=== PATIENT | female | born 2000 | race Caucasian/White ===

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

== ENCOUNTER 2018-04-28 20:24 | Emergency (ER) | payer MEDICAID ==
--- NOTE | 2018-04-28 21:28 | ER Document Report ---
ED Medical Screen (RME) - General Chief Complaint: Abdominal Pain Stated Complaint: RIGHT SIDE PAIN Time Seen by Provider: 04/28/18 21:24 Mode of Arrival: Ambulatory Information source: Patient Notes: Otherwise healthy female patient presents with chief complaint of right lower quadrant pain that started this morning upon awakening. Patient denies any nausea, vomiting, diarrhea, fever or urinary symptoms. Patient denies any blood in her urine, vaginal bleeding or abnormal vaginal discharge. Patient reports she is 18 weeks and is a . Patient reports that the pain is sharp and intermittent located in the right lower quadrant, the pain is worse with movement and holding still alleviates the pain. Patient denies any constipation. Exam: Gravid abdomen, no tenderness to palpation to right lower quadrant. I have greeted and performed a rapid initial assessment of this patient. A comprehensive ED assessment and evaluation of the patient, analysis of test results and completion of the medical decision making process will be conducted by additional ED providers. Dictation of this chart was performed using voice recognition software; therefore, there may be some unintended grammatical errors. TRAVEL OUTSIDE OF THE [place] IN LAST 30 DAYS: No - Related Data Allergies/Adverse Reactions: No Known Allergies Allergy (Verified 12/31/17 22:03) Past Medical History - Social History Chew tobacco use (# tins/day): No Frequency of alcohol use: None Drug Abuse: None Renal/ Medical History: Denies: Hx Peritoneal Dialysis Past Surgical History: Reports: Hx Oral Surgery - 6-25-15 - Immunizations Immunizations up to date: Yes Physical Exam - Vital signs Vitals: Temp Pulse Resp BP Pulse Ox 98.3 F 71 12 132/75 H 99 04/28/18 20:30 04/28/18 20:30 04/28/18 20:30 04/28/18 20:30 04/28/18 20:30 Course - Vital Signs Vital signs: Temp Pulse Resp BP Pulse Ox 98.3 F 71 12 132/75 H 99 04/28/18 20:30 04/28/18 20:30 04/28/18 20:30 04/28/18 20:30 04/28/18 20:30
[2018-04-28 21:45] LABS: ABSOLUTE EOSINOPHILS # (AUTO) 0.1 10^3/uL (0.0-0.6); ABSOLUTE LYMPHOCYTES (AUTO) 2.9 10^3/uL (0.5-4.7); ABSOLUTE MONOCYTES (AUTO) 0.7 10^3/uL (0.1-1.4); ABSOLUTE NEUT (AUTO) 7.2 10^3/uL (1.7-8.2); BASOPHILS % (AUTO) 0.3 % (0-2); EOSINOPHILS % (AUTO) 0.9 % (0-6); HEMATOCRIT 41.1 % (36.0-47.0); HEMOGLOBIN 14.2 g/dL (12.0-15.5); LYMPHOCYTES % (AUTO) 26.5 % (13-45); MEAN CORPUSCULAR HEMOGLOBIN 30.3 pg (27.0-33.4); MEAN CORPUSCULAR HGB CONC 34.5 g/dL (32.0-36.0); MEAN CORPUSCULAR VOLUME 88 fl (80-97); MONOCYTES % (AUTO) 6.2 % (3-13); PLATELET COUNT 216 10^3/uL (150-450); RED BLOOD COUNT 4.68 10^6/uL (3.72-5.28); RED CELL DISTRIBUTION WIDTH 14.4 % (11.5-14.0); SEGMENTED NEUTROPHILS % (AUTO) 66.1 % (42-78); TOTAL CELLS COUNTED % (AUTO) 100 %; WHITE BLOOD COUNT 10.8 10^3/uL (4.0-10.5)
[2018-04-28 21:47] LABS: AMORPHOUS SEDIMENT,URINE TRACE /HPF; APPEARANCE,URINE CLOUDY; BILIRUBIN,URINE NEGATIVE (NEGATIVE); COLOR,URINE YELLOW; GLUCOSE, URINE NEGATIVE (NEGATIVE); KETONES,URINE NEGATIVE (NEGATIVE); LEUKOCYTE ESTERASE,URINE NEGATIVE (NEGATIVE); NITRITE,URINE NEGATIVE (NEGATIVE); PROTEIN,URINE NEGATIVE (NEGATIVE); URINE SPECIFIC GRAVITY 1.012
[2018-04-28 22:09] LABS: ALANINE AMINOTRANSFERASE 20 U/L (5-35); ALBUMIN 4.3 g/dL (3.7-5.6); ALKALINE PHOSPHATASE 53 U/L (50-135); ANION GAP 13 (5-19); ASPARTATE AMINO TRANSFERASE 19 U/L (5-30); BILIRUBIN,DIRECT 0.3 mg/dL (0.0-0.4); BILIRUBIN,TOTAL 0.3 mg/dL (0.2-1.3); BLOOD UREA NITROGEN 6 mg/dL (7-20); CALCIUM 9.5 mg/dL (8.4-10.2); CARBON DIOXIDE 23 mmol/L (22-30); CHLORIDE 105 mmol/L (98-107); GLUCOSE 76 mg/dL (75-110); LIPASE 89.7 U/L (23-300); POTASSIUM 4.4 mmol/L (3.6-5.0); SODIUM 141.1 mmol/L (137-145); TOTAL PROTEIN 7.7 g/dL (6.3-8.2)
--- NOTE | 2018-04-29 00:38 | ER Document Report ---
ED General - General Mode of Arrival: Ambulatory Information source: Patient TRAVEL OUTSIDE OF THE [place] IN LAST 30 DAYS: No <LISETH IRAHETA - Last Filed: 04/29/18 01:45> <JIM AG - Last Filed: 04/29/18 03:37> - General Chief Complaint: Abdominal Pain Stated Complaint: RIGHT SIDE PAIN Time Seen by Provider: 04/28/18 21:24 Notes: 17 y.o female presents to the ED with RT sided abd pain of onset 7:45 tonight. She describes her pain as a sharp pain, prominently to her RLQ. She reports that her pain is intermittent with movement, not worsening in intensity. She denies any fever, vaginal discharge or bleeding, nausea or vomiting. Pt reports her last menstrual period was 12/20/17, she is 18 weeks , A0. She reports an ultrasound on 04/06/18 at [facility]. Pt denies any other medical issues or any at home medications other than taking vitamins. (LISETH IRAHETA) - Related Data Allergies/Adverse Reactions: No Known Allergies Allergy (Verified 12/31/17 22:03) Past Medical History - General Information source: Patient - Social History Smoking Status: Never Smoker Chew tobacco use (# tins/day): No Frequency of alcohol use: None Drug Abuse: None Family History: Reviewed & Not Pertinent Patient has suicidal ideation: No Patient has homicidal ideation: No Renal/ Medical History: Denies: Hx Peritoneal Dialysis Past Surgical History: Reports: Hx Oral Surgery - [place] teeth removal: 03-30-15 - Immunizations Immunizations up to date: Yes <LISETH IRAHETA - Last Filed: 04/29/18 01:45> Review of Systems - Review of Systems Constitutional: denies: Fever EENT: No symptoms reported Cardiovascular: No symptoms reported Respiratory: No symptoms reported Gastrointestinal: See HPI, Abdominal pain - RLQ. denies: Nausea, Vomiting Genitourinary: No symptoms reported Female Genitourinary: See HPI, Last menstrual period - 12/20/17, - 18 weeks. denies: Vaginal discharge, Vaginal bleeding Musculoskeletal: No symptoms reported Skin: No symptoms reported Hematologic/Lymphatic: No symptoms reported Neurological/Psychological: No symptoms reported -: Yes All other systems reviewed and negative <LISETH IRAHETA - Last Filed: 04/29/18 01:45> Physical Exam <LISETH IRAHETA - Last Filed: 04/29/18 01:45> <JIM AG - Last Filed: 04/29/18 03:37> - Vital signs Vitals: Temp Pulse Resp BP Pulse Ox 98.3 F 71 12 132/75 H 99 04/28/18 20:30 04/28/18 20:30 04/28/18 20:30 04/28/18 20:30 04/28/18 20:30 - Notes Notes: Physical Exam: General: Alert, appears well. HEENT: Normocephalic. Atraumatic. PERRL. Extraocular movements intact. Oropharynx clear. Neck: Supple. Non-tender. Respiratory: No respiratory distress. Clear and equal breath sounds bilaterally. Cardiovascular: Regular rate and rhythm. Abdominal: Tenderness to palpation to the RLQ. Bowel sounds decreased. No guarding or rebound. Back: Non-tender. No deformity or step off. Extremities: Moves all four extremities. Upper extremities: Normal inspection. Normal ROM. Lower extremities: Normal inspection. No edema. Normal ROM. Neurological: Normal cognition. AAOx3. Normal speech. Psychological: Normal affect. Normal Mood. Skin: Warm. Dry. Normal color. (BRAULIO IRAHETAIA) Course - Laboratory Result Diagrams: 04/28/18 21:15 04/28/18 21:15 <BRAULIO IRAHETAIA - Last Filed: 04/29/18 01:45> - Laboratory Result Diagrams: 04/28/18 21:15 04/28/18 21:15 - Diagnostic Test Radiology reviewed: Reports reviewed - 18 week normal IUP heart rate 168 normal right ovary with dominant right ovarian follicle. Left ovary not seen. Appendix not seen. <JIM AG - Last Filed: 04/29/18 03:37> - Re-evaluation Re-evalutation: 04/29/18 03:34 Patient reports that her pain is actually better now than it was earlier. Abdomen remains soft, bowel sounds are more active now than they were on initial exam. She does remain tender in the right lower quadrant area, but states that it is better than it was earlier. She does not have elevated white blood cell count. The pain is been going on now for over 20 hours and it is actually improving. She continues to have normal active bowel sounds. The ultrasound does show a normal right ovary with dominant follicle, but no other abnormality. The appendix could not be visualized. She will be discharged with appendicitis observation instructions. (JIM AG) - Vital Signs Vital signs: Temp Pulse Resp BP Pulse Ox 98.3 F 71 12 132/75 H 99 04/28/18 20:30 04/28/18 20:30 04/28/18 20:30 04/28/18 20:30 04/28/18 20:30 - Laboratory Laboratory results interpreted by me: 04/28/18 04/28/18 04/28/18 21:15 21:15 21:15 WBC 10.8 H RDW 14.4 H BUN 6 L Creatinine 0.45 L Beta HCG, Quant 47367.00 H Urine Urobilinogen 2.0 H Discharge <LISETH IRAHETA - Last Filed: 04/29/18 01:45> <JIM AG - Last Filed: 04/29/18 03:37> - Discharge Clinical Impression: with 18 completed weeks gestation, Right lower quadrant abdominal pain Condition: Stable Disposition: HOME, SELF-CARE Additional Instructions: Observation for Appendicitis At this time, the abdominal pain does not seem to be appendicitis. Our next "test" will be passage of time. If you have early appendicitis, signs will appear to help us make the diagnosis. Most of the time, the pain goes away. In these cases, the pain is usually due to a virus in the lymph glands near the appendix, or due to an ovarian cyst or ovulation. Unless the pain is gone, you should come back for a recheck. This is usually done in 8 to 12 hours. Be sure you understand your follow-up instructions. Come back immediately if: (1) the pain becomes much more severe and sharply increases with movement or coughing, (2) vomiting becomes frequent, (3) there is blood in the vomit, urine, or bowel movements, (4) there are shaking chills or fever, or (5) the abdomen becomes more distended or swollen. Follow-up with your [facility] doctor today for recheck, unless the pain goes away completely. RETURN TO THE EMERGENCY ROOM IF ANY NEW OR WORSENING SYMPTOMS. Jordyibjolie Attestation: 04/29/18 01:30 I personally performed the services described in the documentation, reviewed and edited the documentation which was dictated to the scribe in my presence, and it accurately records my words and actions. (JIM AG) Jordyibe Documentation - Scribe Written by Radha:: Radha Shelton 04/29/18 0040 acting as scribe for :: Gila <LISETH IRAHETA - Last Filed: 04/29/18 01:45>
--- NOTE | 2018-04-29 03:04 | RADIOLOGY REPORT (SQ) ---
EXAM DESCRIPTION: Limited obstetric ultrasound April 29, 2018 CLINICAL HISTORY: 17 years, Female, 18wks, RLQ-pelvic pain COMPARISON: None Available.] TECHNIQUE: Utilizing a curved array transducer, real-time ultrasound evaluation of the gravid uterus was performed. Color Doppler imaging was used to assess vascular flow. FINDINGS: There is a single intrauterine . The placenta is anterior positioned. The fetus is in variable position. The cervical length is 3 cm There is a trace amount of fluid within the cervical canal. The heart rate is 168 bpm. The amniotic fluid volume is qualitatively normal. LMP: December 20, 2017 Gestational Age by LMP: 18 weeks 4 days Due Date by LMP: September 26, 2018 The maternal right ovary measures 2.9 x 3.2 x 1.9 cm. There is a dominant right ovarian follicle measuring 1.9 x 1.3 x 2.2 cm. There is intact vascular flow to the maternal right ovary. There are no adnexal masses. The maternal left ovary is not well-visualized. The maternal appendix is not visualized. IMPRESSION: 1. Single intrauterine . 2. Cephalic presentation with anterior placenta. 3. Normal amniotic fluid volume with closed cervix. 4. Normal maternal right ovary with nonvisualization of the appendix.
[2018-04-29 03:45] VITALS: BP 125/70
== END 2018-04-29 03:42 | disposition home or self-care (01) ==
LOC: ER 20:24
DX: O26.92 Pregnancy related conditions, unspecified, second trimester (principal); R10.31 Right lower quadrant pain; Z3A.18 18 weeks gestation of pregnancy
CPT/HCPCS: 36415; 76815; 80053; 81001; 83690; 84702; 85025; 99284

== ENCOUNTER 2018-09-25 18:29 | Inpatient (IN) | payer MEDICAID ==
[2018-09-25 18:59] LABS: APPEARANCE,URINE CLOUDY; BILIRUBIN,URINE NEGATIVE (NEGATIVE); COLOR,URINE YELLOW; GLUCOSE, URINE NEGATIVE (NEGATIVE); KETONES,URINE NEGATIVE (NEGATIVE); LEUKOCYTE ESTERASE,URINE NEGATIVE (NEGATIVE); NITRITE,URINE NEGATIVE (NEGATIVE); PROTEIN,URINE NEGATIVE (NEGATIVE); URINE SPECIFIC GRAVITY 1.012; UROBILINOGEN,URINE NEGATIVE mg/dL (<2.0)
[2018-09-25 19:16] LABS: ABSOLUTE EOSINOPHILS # (AUTO) 0.1 10^3/uL (0.0-0.6); ABSOLUTE LYMPHOCYTES (AUTO) 2.6 10^3/uL (0.5-4.7); ABSOLUTE MONOCYTES (AUTO) 0.9 10^3/uL (0.1-1.4); ABSOLUTE NEUT (AUTO) 9.4 10^3/uL (1.7-8.2); BASOPHILS % (AUTO) 0.1 % (0-2); EOSINOPHILS % (AUTO) 0.4 % (0-6); HEMATOCRIT 33.4 % (36.0-47.0); LYMPHOCYTES % (AUTO) 20.1 % (13-45); MEAN CORPUSCULAR HGB CONC 32.9 g/dL (32.0-36.0); MEAN CORPUSCULAR VOLUME 82 fl (80-97); MONOCYTES % (AUTO) 7.2 % (3-13); PLATELET COUNT 229 10^3/uL (150-450); RED BLOOD COUNT 4.07 10^6/uL (3.72-5.28); RED CELL DISTRIBUTION WIDTH 14.5 % (11.5-14.0); SEGMENTED NEUTROPHILS % (AUTO) 72.2 % (42-78); TOTAL CELLS COUNTED % (AUTO) 100 %
[2018-09-25 19:22] LABS: URINE AMPHETAMINES SCREEN NEGATIVE; URINE BARBITURATES SCREEN NEGATIVE; URINE BENZODIAZEPINES SCREEN NEGATIVE; URINE COCAINE SCREEN NEGATIVE; URINE MARIJUANA (THC) SCREEN NEGATIVE; URINE METHADONE SCREEN NEGATIVE; URINE PHENCYCLIDINE SCREEN NEGATIVE
[2018-09-25] MEDS ORDERED: LIDOCAINE 1% INJ-PF (10 MG/ML) 30 ML SDV ONE (19:26)
[2018-09-25] MEDS ORDERED: OXYTOCIN 10 UNIT/ML VIAL ONE (19:26)
[2018-09-25] MEDS ORDERED: OXYTOCIN/NORMAL SALINE 20 UNIT/1,000 ML RTUINJ ONE (19:26)
[2018-09-25] MEDS ORDERED: MISOPROSTOL 0.2 MG TABLET ONE (19:26)
[2018-09-25] MEDS ORDERED: EPHEDRINE SULFATE INJ 50 MG/1 ML AMPULE ONE (19:29)
[2018-09-25] MEDS ORDERED: BUPIVACAINE HCL 0.25 % INJ/PF (2.5 MG/1 ML) 30 ML VIAL ONE (19:29)
[2018-09-25] MEDS ORDERED: PHENYLEPHRINE HCL INJ/PF 10 MG/1 ML SDV ONE (19:29)
[2018-09-25] MEDS ORDERED: FENTANYL CITRATE INJ/PF 100 MCG/2 ML AMPUL ONE (19:29)
[2018-09-25] MEDS ORDERED: FENTANYL/BUPIVACAINE/NS/PF 300 MCG/150 ML RTUINJ EPI ONE (19:31)
[2018-09-25] MEDS ORDERED: LIDOCAINE 1.5%/EPINEPHRINE INJ-PF 30 ML SDV ONE (20:00)
--- NOTE | 2018-09-25 21:03 | Admission Physical ---
Datetime Report Generated by CPN: 09/25/2018 21:02 CURRENT ADMISSION Chief Complaint: Uterine Contractions Indication for Induction: Not Applicable Admit Impression : Term, Intrauterine Admit Plan: Initiate Labor Protocol ALLERGIES Medication Allergies: No Medication Allergies: No Known Allergies (09/25/2018) Latex: No Latex Allergies OBSTETRICAL HISTORY EDC: 09/26/2018 00:00 : 1 Para: 0 Term: 0 : 0 SAB: 0 IAB: 0 Ectopic: 0 Livin Cesareans: 0 VBACs: 0 Multiple Births: 0 Gestational Diabetes: No Rh Sensitization: No Incompetent Cervix: No HARMAN: No Infertility: No ART Treatment: No Uterine Anomaly: No IUGR: No Hx Previous C/S: No Macrosomia: No Hx Loss/Stillborn: No PIH: No Hx : No Placenta Previa/Abruption: No Depression/PP Depression: No PTL/PROM: No Post Hemorrhage: No Current Procedures: Ultrasound Obstetrical History Comments: G-1 current SEE RECORDS Alcohol: No Marijuana : No Cocaine: No Other Illicit Drugs: No Cigarettes: Never Smoker. 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
[2018-09-26] MEDS ORDERED: PSEUDOEPHEDRINE HCL 30 MG TABLET PO PRN (00:08)
[2018-09-26] MEDS ORDERED: PROMETHAZINE HCL INJ 25 MG/1 ML VIAL IV PRN (00:08)
[2018-09-26] MEDS ORDERED: DIPH/PERTUSS(ACELL)/TETANUS VAC/PF 0.5 ML SYR (>=10YO) IM PRN (00:08)
[2018-09-26] MEDS ORDERED: GLYCERIN/WITCH HAZEL LEAF 1 EACH MED..PAD TP PRN (00:08)
[2018-09-26] MEDS ORDERED: PROMETHAZINE HCL 25 MG TABLET PO PRN (00:08)
[2018-09-26] MEDS ORDERED: PROMETHAZINE HCL 25 MG SUPP.RECT PR PRN (00:08)
[2018-09-26] MEDS ORDERED: BENZOCAINE/MENTHOL AEROSOL SPRAY 56 ML TOP PRN (00:08)
[2018-09-26] MEDS ORDERED: DIPHENHYDRAMINE HCL 25 MG CAPSULE PO PRN (00:08)
[2018-09-26] MEDS ORDERED: ACETAMINOPHEN WITH CODEINE #3 TABLET PO PRN (00:08)
[2018-09-26] MEDS ORDERED: MEASLES,MUMPS&RUBELLA VACC/PF 0.5 ML VIAL SUBCUT PRN (00:08)
[2018-09-26] MEDS ORDERED: NA PHOS,M-B/NA PHOS,DI-BA (ADULT) 133 ML ENEMA PR PRN (00:08)
[2018-09-26] MEDS ORDERED: ZOLPIDEM TARTRATE 5 MG TABLET PO PRN (00:08)
[2018-09-26] MEDS ORDERED: OXYTOCIN/NORMAL SALINE 20 UNIT/1,000 ML RTUINJ IV PRN (00:08)
[2018-09-26] MEDS ORDERED: DIBUCAINE 1% OINTMENT 28 GM TP PRN (00:08)
[2018-09-26] MEDS ORDERED: MAGNESIUM HYDROXIDE SUSP 30 ML UDCUP PO PRN (00:08)
[2018-09-26] MEDS ORDERED: ACETAMINOPHEN 650 MG SUPP.RECT PR PRN (00:08)
--- NOTE | 2018-09-26 00:11 | PDOC DELIVERY SUMMARY ---
Delivery Summary - Maternal Ruptured Membranes: AROM Fluids: Clear - Delivery Labor: Not In Labor Presentation: Vertex Heart Rate Monitoring: Externally Uterine Contraction Monitoring: External Placenta: Within Normal Limits Nuchal Cord: No - Medications Type of Anesthesia:: Epidural
[2018-09-26] MEDS ORDERED: IBUPROFEN 800 MG TABLET ONE (01:09)
[2018-09-26] MEDS ORDERED: BENZOCAINE/MENTHOL AEROSOL SPRAY 56 ML ONE (02:21)
--- NOTE | 2018-09-26 02:39 | Delivery Summary ---
Del Sum A-C Datetime Report Generated by CPN: 09/26/2018 02:39 DELIVERY PERSONNEL DELIVERY PERSONNEL: [id number] Delivery Doctor:: Erick Valle, Labor and Delivery Nurse:: Jane Mcduffie, returned materials inspector Nurse:: Licha Villegas, RN Freezer Tunnel Operator/GENERAL UTILITY MAINTENANCE REPAIRER: Bora Ertel, GENERAL UTILITY MAINTENANCE REPAIRER MATERNAL INFORMATION Delivery Anesthesia: Epidural Medications After Delivery: Pitocin Drip 20 Units/1000ml NSS Maternal Complications: None LABOR SUMMARY EDC: 09/26/2018 00:00 No. Babies in Womb: 1 Attempted: No Labor Anesthesia: Epidural LABOR INFORMATION Reason for Induction: Not Applicable Onset of Labor: 09/25/2018 15:00 Complete Dilatation: 09/25/2018 21:43 Oxytocin: N/A Group B Beta Strep: negative Antibiotics # of Doses: 0 Steroids Given: None Reason Steroids Not Administered: Not Applicable MEMBRANES Membranes Rupture Method: Artificial Rupture of Membranes: 09/25/2018 21:33 Length of Rupture (hr): 2.30 Amniotic Fluid Color: Clear Amniotic Fluid Amount: Scant Amniotic Fluid Odor: Normal STAGES OF LABOR Stage 1 hr: 6 Stage 1 min: 43 Stage 2 hr: 2 Stage 2 min: 8 Stage 3 hr: 0 Stage 3 min: 4 Total Time in Labor hr: 8 Total Time in Labor min: 55 VAGINAL DELIVERY Episiotomy: None Laceration #1: Perineal; Vaginal Laceration Extension #1: Second Degree Laceration Repair: Yes Sponge Count Correct: N/A Sharps Count Correct: Yes CSECTION DELIVERY Primary Indication: N/A Secondary Indication: N/A CSection Incidence: N/A Labor: N/A Elective: N/A CSection Incision: N/A BABY A INFORMATION Delivery Date/Time: 09/25/2018 23:51 Method of Delivery: Vaginal Born in Route : No : N/A Forceps: N/A Vacuum Extraction: Successful Shoulder Dystocia : No ASSISTED DELIVERY BABY A Vacuum Internal Controls Specialist: KIWI PRESENTATION/POSITION BABY A Presentation: Cephalic Cephalic Presentation: Vertex Vertex Position: Left Occipital Anterior Breech Presentation: N/A PLACENTA INFORMATION BABY A Placenta Delivery Time : 09/25/2018 23:55 Placenta Method of Delivery: Spontaneous Placenta Status: Delivered SCORES BABY A Heart Rate 1 min: >100 bpm Resp Effort 1 min: Good Cry Reflex Irritability 1 min: Cough or Sneeze or Pulls Away Muscle Tone 1 min: Active Motion Color 1 min: Blue/Pale Resuscitation Effort 1 min: Tactile Stimulation SCORE 1 MIN: 8 Heart Rate 5 min: >100 bpm Resp Effort 5 min: Good Cry Reflex Irritability 5 min: Cough or Sneeze or Pulls Away Muscle Tone 5 min: Active Motion Color 5 min: Body Clarks, Extremities Blue Resuscitation Effort 5 min: Tactile Stimulation SCORE 5 MIN: 9 INFORMATION BABY A Gestational Age at Delivery: 39.6 Gestational Status: Full Term- 39- 40.6 Weeks Infant Outcome : Liveborn Condition : Stable Infant Sex: Male IDENTIFICATION BABY A ID Band Number: [id number] Mother's Name Verified: Yes Infant RN Verifying Infant: T. GentilinRN/ A.Killinger RN WEIGHT/LENGTH BABY A Infant Birthweight (gm): 3125 Infant Weight (lb): 6 Infant Weight (oz): 14 Length (in): 20.00 Length (cm): 50.80 CORD INFORMATION BABY A No. Cord Vessels: 3 Nuchal Cord : N/A Cord Blood Taken: Yes-For Eval (Mom's Blood Type - or O+) Infant Suction: Mouth ASSESSMENT BABY A Complications: None Physical Findings at Delivery: Within Normal Limits Skin to Skin: Yes Transferred To: Nursery BABY B INFORMATION : N/A SIGNATURES Signature: with User ID: [email or web address]
[2018-09-26] MEDS: FERROUS SULFATE 325 MG TABLET PO SCH ×2 (09:33→17:51)
[2018-09-26] MEDS: IBUPROFEN 800 MG TABLET PO SCH ×3 (09:33→22:11)
[2018-09-26] MEDS: SENNOSIDES/DOCUSATE 8.6-50 MG 1 EACH TABLET PO SCH (09:35)
[2018-09-26] MEDS: PRENATAL VITAMIN W DHA CAPSULE PO SCH (09:36)
[2018-09-26] MEDS: FAMOTIDINE 20 MG TABLET PO SCH ×2 (09:36→22:10)
[2018-09-26] MEDS: DOCUSATE SODIUM 100 MG CAPSULE PO SCH ×2 (09:36→17:51)
[2018-09-27] MEDS: IBUPROFEN 800 MG TABLET PO SCH (05:02)
[2018-09-27 08:22] VITALS: BP 116/83
[2018-09-27] MEDS: SENNOSIDES/DOCUSATE 8.6-50 MG 1 EACH TABLET PO SCH (09:06)
[2018-09-27] MEDS: DOCUSATE SODIUM 100 MG CAPSULE PO SCH (09:06)
[2018-09-27] MEDS: FERROUS SULFATE 325 MG TABLET PO SCH (09:06)
[2018-09-27] MEDS: PRENATAL VITAMIN W DHA CAPSULE PO SCH (09:06)
[2018-09-27] MEDS: FAMOTIDINE 20 MG TABLET PO SCH (09:06)
--- NOTE | 2018-09-27 09:50 | PDOC DISCHARGE SUMMARY ---
Final Diagnosis Discharge Date: 09/27/18 - PP Day #2, doing well, no complaints, , O+, rubella + - Final Diagnosis (1) (spontaneous vaginal delivery) Is this a current diagnosis for this admission?: Yes (2) Normal course Is this a current diagnosis for this admission?: Yes Discharge Data - Discharge Medication Prescriptions: Ibuprofen [Motrin 800 mg Tablet] 800 mg PO Q8 #60 tablet Home Medications: Pnv No.95/Ferrous Fum/Folic AC [ Multivitamin Tablet] 1 each PO DAILY 09/25/18 Ibuprofen [Motrin 800 mg Tablet] 800 mg PO Q8 #60 tablet 09/27/18 Reason(s) for Admission: Onset of Labor Procedures: Ultrasound Intrapartum Procedure(s): Spontaneous Vaginal Delivery Complication(s): Laceration-Vaginal Laceration-Degree: 2nd - Diagnosis Test Laboratory: Temp Pulse Resp BP Pulse Ox 98.5 F 77 18 116/83 99 09/27/18 08:05 09/27/18 08:05 09/27/18 08:05 09/27/18 08:05 09/27/18 08:05 09/25/18 09/25/18 18:35 19:03 RBC 4.07 Hgb 11.0 L Hct 33.4 L Urine Opiates Screen NEGATIVE - Discharge information/Instructions Discharge Activity: Activity As Tolerated, No Lifting Over 10 Pounds, Pelvic Rest Discharge Diet: As Tolerated, Regular Disposition: HOME, SELF-CARE Follow up with: [facility] in: 4, Weeks
== END 2018-09-27 13:40 | disposition home or self-care (01) | DRG 807 ==
LOC: LC 18:29 → LR 18:51 → 2S 09-26 08:27
PROVIDERS: ADMIT Obstetrics & Gynecology Gynecology; ATTEND Obstetrics & Gynecology Gynecology
PROC: 10D07Z6 Extraction of Products of Conception, Vacuum, Via Natural or Artificial Opening (ICD-10-PCS; principal; 2018-09-25)
PROC: 0KQM0ZZ Repair Perineum Muscle, Open Approach (ICD-10-PCS; 2018-09-25)
PROC: 3E0234Z Introduction of Serum, Toxoid and Vaccine into Muscle, Percutaneous Approach (ICD-10-PCS; 2018-09-27)
DX: O33.0 Maternal care for disproportion due to deformity of maternal pelvic bones (principal); Z37.0 Single live birth; O70.1 Second degree perineal laceration during delivery; Z3A.39 39 weeks gestation of pregnancy; Z23 Encounter for immunization
CPT/HCPCS: 36415; 80307; 81005; 85025; 86592; 86850; 86870; 86900; 86901; 90471; 90686; 94760; G0008; J2370; J2590; J3010; J3490

== ENCOUNTER 2018-10-16 20:21 | Emergency (ER) | payer MEDICAID ==
[2018-10-16 20:57] VITALS: BP 123/73
== END 2018-10-16 21:54 | disposition left against medical advice (07) ==
LOC: ER 20:21
DX: Z53.21 Procedure and treatment not carried out due to patient leaving prior to being seen by health care provider (principal)

== ENCOUNTER 2019-06-30 21:48 | Emergency (ER) | payer MEDICAID, OTHER ==
--- NOTE | 2019-06-30 22:42 | ER Document Report ---
ED Medical Screen (RME) - General Chief Complaint: Abdominal Pain Stated Complaint: ABDOMINAL PAIN Time Seen by Provider: 06/30/19 22:36 Mode of Arrival: Ambulatory Information source: Patient Notes: 18-year-old female presents emergency department with complaints of lower abdomen pain but points to her pelvic region. Patient reports hurts with movement. Reports she had this a few months ago and it went away. Denies pain with void. Denies vaginal discharge. Reports she just finished her menses. Denies fever and diarrhea. I have greeted and performed a rapid initial assessment of this patient. A comprehensive ED assessment and evaluation of the patient, analysis of test results and completion of the medical decision making process will be conducted by additional ED providers. Dictation of this chart was performed using voice recognition software; therefore, there may be some unintended grammatical errors. TRAVEL OUTSIDE OF THE [place] IN LAST 30 DAYS: No - Related Data Allergies/Adverse Reactions: No Known Allergies Allergy (Verified 09/25/18 18:38) Past Medical History Renal/ Medical History: Denies: Hx Peritoneal Dialysis Past Surgical History: Reports: Hx Oral Surgery - [place] teeth removal: 03-30-15 - Immunizations Immunizations up to date: Yes Physical Exam - Vital signs Vitals: Temp Pulse Resp BP Pulse Ox 98.3 F 81 16 117/70 99 06/30/19 22:14 06/30/19 22:14 06/30/19 22:14 06/30/19 22:14 06/30/19 22:14 Course - Vital Signs Vital signs: Temp Pulse Resp BP Pulse Ox 98.3 F 81 16 117/70 99 06/30/19 22:14 06/30/19 22:14 06/30/19 22:14 06/30/19 22:14 06/30/19 22:14
[2019-06-30 23:44] LABS: ABSOLUTE EOSINOPHILS # (AUTO) 0.1 10^3/uL (0.0-0.6); ABSOLUTE MONOCYTES (AUTO) 0.7 10^3/uL (0.1-1.4); ABSOLUTE NEUT (AUTO) 4.2 10^3/uL (1.7-8.2); BASOPHILS % (AUTO) 0.5 % (0-2); EOSINOPHILS % (AUTO) 1.5 % (0-6); HEMATOCRIT 40.4 % (36.0-47.0); HEMOGLOBIN 13.2 g/dL (12.0-15.5); LYMPHOCYTES % (AUTO) 37.5 % (13-45); MEAN CORPUSCULAR HEMOGLOBIN 25.9 pg (27.0-33.4); MEAN CORPUSCULAR HGB CONC 32.6 g/dL (32.0-36.0); MEAN CORPUSCULAR VOLUME 80 fl (80-97); MONOCYTES % (AUTO) 8.3 % (3-13); PLATELET COUNT 304 10^3/uL (150-450); RED BLOOD COUNT 5.08 10^6/uL (3.72-5.28); RED CELL DISTRIBUTION WIDTH 15.4 % (11.5-14.0); SEGMENTED NEUTROPHILS % (AUTO) 52.2 % (42-78); TOTAL CELLS COUNTED % (AUTO) 100 %; WHITE BLOOD COUNT 8.1 10^3/uL (4.0-10.5)
[2019-06-30 23:55] LABS: APPEARANCE,URINE SLIGHTLY-CLOUDY; BILIRUBIN,URINE NEGATIVE (NEGATIVE); COLOR,URINE YELLOW; GLUCOSE, URINE NEGATIVE (NEGATIVE); KETONES,URINE TRACE mg/dL (NEGATIVE); LEUKOCYTE ESTERASE,URINE NEGATIVE (NEGATIVE); NITRITE,URINE NEGATIVE (NEGATIVE); PROTEIN,URINE 30 mg/dL (NEGATIVE); URINE SPECIFIC GRAVITY 1.029
--- NOTE | 2019-07-01 | RADIOLOGY REPORT (SQ) ---
EXAM DESCRIPTION: [facility]: US PELVIS TRANSVAGINAL CLINICAL HISTORY: 18 years Female pelvic pain TECHNIQUE: Endovaginal pelvic ultrasound was performed. COMPARISON: None. FINDINGS: Uterus: 6.9 x 4.4 x 3 cm, with 3 mm endometrial stripe. No uterine masses Cervix 1.7 cm Right ovary: 3.2 x 2.1 x 2.6 cm. Normal vascular flow on Doppler. Left ovary: 2.6 x 1.8 x 1.7 cm. Normal vascular flow on Doppler. No free fluid. No adnexal masses. IMPRESSION: 1. Normal pelvic ultrasound.
[2019-07-01 00:11] LABS: ALBUMIN 5.1 g/dL (3.5-5.0); ALKALINE PHOSPHATASE 109 U/L (38-126); ANION GAP 11 (5-19); ASPARTATE AMINO TRANSFERASE 23 U/L (14-36); BILIRUBIN,DIRECT 0.2 mg/dL (0.0-0.4); BILIRUBIN,TOTAL 0.2 mg/dL (0.2-1.3); BLOOD UREA NITROGEN 15 mg/dL (7-20); CALCIUM 10.1 mg/dL (8.4-10.2); CARBON DIOXIDE 27 mmol/L (22-30); CHLORIDE 104 mmol/L (98-107); GLUCOSE 103 mg/dL (75-110); POTASSIUM 4.3 mmol/L (3.6-5.0); TOTAL PROTEIN 8.3 g/dL (6.3-8.2)
[2019-07-01 01:09] LABS: CHLAM PCR NOT DETECTED (NOT DETECT)
--- NOTE | 2019-07-01 04:20 | ER Document Report ---
ED GI/ - General Chief Complaint: Abdominal Pain Stated Complaint: ABDOMINAL PAIN Time Seen by Provider: 06/30/19 22:36 Mode of Arrival: Ambulatory Notes: Patient is a 18-year-old female that comes emergency department for chief complaint of lower abdominal pain. She states she noticed this more on the right side. She states she has actually had this for approximately a month but it is intermittent, occasionally crampy, occasionally sharp, and she noticed it a lot more this evening so she came in for evaluation. She recently completed her menstrual cycle. She denies vaginal discharge, dysuria, flank pain, nausea/vomiting, fever/chills. She has had some irregular bowel movements including a couple episodes of diarrhea recently but no bloody bowel movements. She denies surgeries other than oral surgery. TRAVEL OUTSIDE OF THE [place] IN LAST 30 DAYS: No - Related Data Allergies/Adverse Reactions: No Known Allergies Allergy (Verified 09/25/18 18:38) Past Medical History - General Information source: Patient - Social History Smoking Status: Never Smoker Frequency of alcohol use: None Drug Abuse: None Lives with: Family Family History: Reviewed & Not Pertinent Patient has suicidal ideation: No Patient has homicidal ideation: No Renal/ Medical History: Denies: Hx Peritoneal Dialysis Past Surgical History: Reports: Hx Oral Surgery - [place] teeth removal: 03-30-15 - Immunizations Immunizations up to date: Yes Review of Systems - Review of Systems Constitutional: No symptoms reported EENT: No symptoms reported Cardiovascular: No symptoms reported Respiratory: No symptoms reported Gastrointestinal: See HPI Genitourinary: No symptoms reported Female Genitourinary: No symptoms reported Musculoskeletal: No symptoms reported Skin: No symptoms reported Hematologic/Lymphatic: No symptoms reported Neurological/Psychological: No symptoms reported Physical Exam - Vital signs Vitals: Temp Pulse Resp BP Pulse Ox 98.3 F 81 16 117/70 99 06/30/19 22:14 06/30/19 22:14 06/30/19 22:14 06/30/19 22:14 06/30/19 22:14 - Notes Notes: GENERAL: Alert, interacts well. No acute distress. HEAD: Normocephalic, atraumatic. EYES: Pupils equal, round, and reactive to light. Extraocular movements intact. ENT: Oral mucosa dry, tongue midline. Oropharynx unremarkable. Airway patent. NECK: Full range of motion. Supple. Trachea midline. LUNGS: Clear to auscultation bilaterally, no wheezes, rales, or rhonchi. No respiratory distress. HEART: Regular rate and rhythm. No murmur ABDOMEN: Soft, non-tender. Non-distended. Bowel sounds present in all 4 q uadrants. GENITOURINARY: Deferred EXTREMITIES: Moves all 4 extremities spontaneously. No edema, normal radial and dorsalis pedis pulses bilaterally. No cyanosis. BACK: no cervical, thoracic, lumbar midline tenderness. No saddle anesthesia, normal distal neurovascular exam. Moves all extremities in full range of motion. NEUROLOGICAL: Alert and oriented x3. Normal speech. Cranial nerves II through X II grossly intact. PSYCH: Normal affect, normal mood. SKIN: Warm, dry, normal turgor. No rashes or lesions noted. Course - Re-evaluation Re-evalutation: Patient is well-appearing on exam, slightly dry mucous membranes but completely unremarkable physical exam otherwise. Soft benign abdomen. No pain over pelvic area either. No flank pain. Vital signs unremarkable. CBC, chemistry unremarkable, gonorrhea and chlamydia from triage testing is negative, urinalysis shows elevated specific gravity and ketones but is otherwise unremarkable. Ultrasound reviewed and also shows no acute findings. I am uncertain of the exact cause of patient's pain but based on her indicated location and her intermittent symptoms I suspect this is bowel. Very low suspicion of acute abdomen. Discussed with patient. Provided with medications for suspected bowel cramping, discussed rehydration (she declined IV rehydration here), discussed follow-up and return precautions. Patient states appreciation and agreement. - Vital Signs Vital signs: Temp Pulse Resp BP Pulse Ox 98.3 F 89 16 107/70 99 07/01/19 03:35 07/01/19 04:37 07/01/19 04:37 07/01/19 04:37 07/01/19 04:37 - Laboratory Result Diagrams: 06/30/19 23:22 06/30/19 23:22 Laboratory results interpreted by me: 06/30/19 06/30/19 06/30/19 23:22 23:22 23:22 MCH 25.9 L RDW 15.4 H Total Protein 8.3 H Albumin 5.1 H Urine Protein 30 H Urine Ketones TRACE H Urine Urobilinogen 4.0 H Urine Ascorbic Acid 40 H Discharge - Discharge Clinical Impression: Lower abdominal pain Condition: Stable Disposition: HOME, SELF-CARE Additional Instructions: Your work-up shows dehydration but otherwise is normal including the ultrasound. Based on your examination I suspect the pain is coming from your bowel. I do recommend that the stool softener as prescribed for the next several days, drink a lot of fluids, and take the Phenergan (only if needed) for nausea. Follow-up with primary care for additional evaluation management. Return if you worsen including fever, vomiting, severe worsening pain, or any other concerning symptoms. Prescriptions: Docusate Sodium [Colace 100 mg Capsule] 100 mg PO ASDIR PRN #30 capsule PRN Reason: Promethazine HCl [Phenergan 25 mg Tablet] 25 mg PO Q6H PRN #15 tablet PRN Reason:
[2019-07-01 05:10] VITALS: BP 107/70
== END 2019-07-01 04:37 | disposition home or self-care (01) ==
LOC: ER 21:48
DX: R10.30 Lower abdominal pain, unspecified (principal); R19.7 Diarrhea, unspecified
CPT/HCPCS: 36415; 76830; 80053; 81001; 81025; 85025; 87491; 87591; 93976; 99284

== ENCOUNTER 2019-09-06 05:48 | Emergency (ER) | payer MEDICAID, OTHER ==
[2019-09-06 06:24] LABS: APPEARANCE,URINE CLEAR; BILIRUBIN,URINE NEGATIVE (NEGATIVE); COLOR,URINE YELLOW; GLUCOSE, URINE NEGATIVE (NEGATIVE); KETONES,URINE NEGATIVE (NEGATIVE); LEUKOCYTE ESTERASE,URINE NEGATIVE (NEGATIVE); NITRITE,URINE NEGATIVE (NEGATIVE); PROTEIN,URINE NEGATIVE (NEGATIVE); URINE SPECIFIC GRAVITY 1.026
[2019-09-06] MEDS ORDERED: ONDANSETRON 4 MG TAB.RAPDIS PO ONE (07:24)
--- NOTE | 2019-09-06 07:27 | ER Document Report ---
ED Medical Screen (RME) - General Chief Complaint: Nausea Stated Complaint: VOMITING NAUSEA Time Seen by Provider: 09/06/19 07:18 Primary Care Provider: NILTON BAGLEY PA-C [Primary Care Provider] - Follow up as needed Notes: 18-year-old healthy female presents the emergency department for nausea since the previous Friday. Patient states that she vomited last Friday and has had persistent nausea since then. Patient states that she got up to use the restroom just prior to arrival and became very dizzy prompting her to seek emergency treatment. Denies any shortness of breath or chest pain, denies any recent illness, denies abdominal pain, denies diarrhea, denies urinary symptoms, denies abnormal vaginal discharge. Exam: Well-appearing in no acute distress, lungs are clear to auscultation in all pedroza, regular cardiac rate and rhythm, S1-S2 heard, abdomen is soft and nontender, bowel sounds heard I have greeted and performed a rapid initial assessment of this patient. A comprehensive ED assessment and evaluation of the patient, analysis of test results and completion of medical decision making process will be conducted by an additional ED providers. TRAVEL OUTSIDE OF THE [place] IN LAST 30 DAYS: No - Related Data Allergies/Adverse Reactions: No Known Allergies Allergy (Verified 09/25/18 18:38) Past Medical History - Social History Frequency of alcohol use: None Drug Abuse: None Renal/ Medical History: Denies: Hx Peritoneal Dialysis Past Surgical History: Reports: Hx Oral Surgery - [place] teeth removal: 03-30-15 - Immunizations Immunizations up to date: Yes Physical Exam - Vital signs Vitals: Temp Pulse Resp BP Pulse Ox 98.5 F 100 15 121/77 100 09/06/19 05:52 09/06/19 05:52 09/06/19 05:52 09/06/19 05:52 09/06/19 05:52 Course - Vital Signs Vital signs: Temp Pulse Resp BP Pulse Ox 98.5 F 100 15 121/77 100 09/06/19 05:52 09/06/19 05:52 09/06/19 05:52 09/06/19 05:52 09/06/19 05:52 - Laboratory Laboratory results interpreted by me: 09/06/19 06:11 Urine Urobilinogen 2.0 H Doctor's Discharge - Discharge Referrals: NILTON BAGLEY PA-C [Primary Care Provider] - Follow up as needed
[2019-09-06 08:08] LABS: ABSOLUTE EOSINOPHILS # (AUTO) 0.2 10^3/uL (0.0-0.6); ABSOLUTE LYMPHOCYTES (AUTO) 2.5 10^3/uL (0.5-4.7); ABSOLUTE MONOCYTES (AUTO) 0.9 10^3/uL (0.1-1.4); ABSOLUTE NEUT (AUTO) 5.7 10^3/uL (1.7-8.2); BASOPHILS % (AUTO) 0.3 % (0-2); EOSINOPHILS % (AUTO) 1.9 % (0-6); HEMATOCRIT 39.8 % (36.0-47.0); HEMOGLOBIN 13.3 g/dL (12.0-15.5); LYMPHOCYTES % (AUTO) 26.3 % (13-45); MEAN CORPUSCULAR HEMOGLOBIN 27.3 pg (27.0-33.4); MEAN CORPUSCULAR HGB CONC 33.4 g/dL (32.0-36.0); MEAN CORPUSCULAR VOLUME 82 fl (80-97); MONOCYTES % (AUTO) 9.9 % (3-13); PLATELET COUNT 229 10^3/uL (150-450); RED BLOOD COUNT 4.87 10^6/uL (3.72-5.28); RED CELL DISTRIBUTION WIDTH 15.8 % (11.5-14.0); SEGMENTED NEUTROPHILS % (AUTO) 61.6 % (42-78); TOTAL CELLS COUNTED % (AUTO) 100 %; WHITE BLOOD COUNT 9.3 10^3/uL (4.0-10.5)
[2019-09-06] MEDS ORDERED: METOCLOPRAMIDE HCL 10 MG TABLET PO ONE (08:17)
--- NOTE | 2019-09-06 08:23 | ER Document Report ---
ED General - General Chief Complaint: Nausea Stated Complaint: VOMITING NAUSEA Time Seen by Provider: 09/06/19 07:18 Primary Care Provider: NILTON BAGLEY PA-C [Primary Care Provider] - Follow up as needed TRAVEL OUTSIDE OF THE [place] IN LAST 30 DAYS: No - HPI Notes: Mrs. Long is a 18-year-old female presenting with a chief complaint of nausea/vomiting. This is been going going on intermittently for about 4 days. Low-grade temperature. No diarrhea. No abdominal pain. No respiratory symptoms. Patient is still breast-feeding a 1-year-old. 1 para 1. No surgery. Last menses 3 weeks ago. Pertinent prior history: No regular medications. No known allergies. Denies use of tobacco alcohol or drugs. - Related Data Allergies/Adverse Reactions: No Known Allergies Allergy (Verified 09/25/18 18:38) Past Medical History - General Information source: Patient - Social History Smoking Status: Never Smoker Frequency of alcohol use: None Drug Abuse: None Family History: Reviewed & Not Pertinent Patient has suicidal ideation: No Patient has homicidal ideation: No Renal/ Medical History: Denies: Hx Peritoneal Dialysis Past Surgical History: Reports: Hx Oral Surgery - [place] teeth removal: 03-30-15 - Immunizations Immunizations up to date: Yes Review of Systems - Review of Systems Notes: Constitutional: Negative for fever. HENT: Negative for sore throat. Eyes: Negative for visual changes. Cardiovascular: Negative for chest pain. Respiratory: Negative for shortness of breath. Gastrointestinal: As per HPI. Genitourinary: Negative for dysuria. Musculoskeletal: Negative for back pain. Skin: Negative for rash. Neurological: Negative for headaches, weakness or numbness. 10 point ROS negative except as marked above and in HPI. Physical Exam - Vital signs Vitals: Temp Pulse Resp BP Pulse Ox 98.5 F 100 15 121/77 100 09/06/19 05:52 09/06/19 05:52 09/06/19 05:52 09/06/19 05:52 09/06/19 05:52 - Notes Notes: GENERAL: Well-developed well-nourished appearing in no acute distress. SKIN: Good turgor no rashes. HEAD: Normocephalic atraumatic. EYES: PERRLA. Conjunctivae and sclerae clear. EARS: CANALS AND TMS CLEAR. NOSE: CLEAR. MOUTH: Moist mucosa. Good dentition. No stridor or edema. No drooling. NECK: Supple. No masses or thyromegaly. No adenopathy. Carotids 2+ without bruits. No JVD. BACK: Symmetrical without tenderness. CHEST: Respirations unlabored. Breath sounds clear and symmetrical. HEART: Regular rhythm. No murmur gallop or rub. ABDOMEN: Soft nontender without masses, organomegaly or rebound. Bowel sounds normally active. No bruits. GENITALIA: Deferred. EXTREMITIES: No edema. No calf tenderness. Cap refill less than 1.5 seconds. Dorsalis pedis and posterior tibial pulses 3+ and symmetrical. NEUROLOGICAL: GCS 15. Alert and oriented x3. Normal gait. Fluent speech. Cranial nerves II through XII intact. Sensorimotor and cerebellar normal. Normal tone. Course - Re-evaluation Re-evalutation: 09/06/19 08:23 Urinalysis is normal. Nonsurgical abdomen by exam. Will give patient a dose of oral metoclopramide and some oral fluids and then reevaluate at [facility] been [facility]. 09/06/19 10:15 Patient was given oral Reglan and has tolerated p.o. fluids here with no difficulty. She wants to be discharged home and I feel this is appropriate. - Vital Signs Vital signs: Temp Pulse Resp BP Pulse Ox 98.5 F 100 15 121/77 100 09/06/19 05:52 09/06/19 05:52 09/06/19 05:52 09/06/19 05:52 09/06/19 05:52 - Laboratory Result Diagrams: 09/06/19 08:00 09/06/19 08:00 Laboratory results interpreted by me: 09/06/19 09/06/19 06:11 08:00 RDW 15.8 H Urine Urobilinogen 2.0 H 09/06/19 08:22 Urine hCG negative. Discharge - Discharge Clinical Impression: Acute gastroenteritis Condition: Stable Disposition: HOME, SELF-CARE Instructions: Antinausea Medication ([facility]), Gastroenteritis (adult) ([facility]) Additional Instructions: Increase oral fluids. Use prescribed medications as needed. Return here as needed for new or worsening symptoms: High fever/chills, persistent vomiting or development of abdominal pain. Follow-up with your primary care doctor within the next 2 to 3 days if symptoms unresolved. Prescriptions: Metoclopramide HCl 5 mg PO Q6 PRN 3 Days #20 tablet PRN Reason: Referrals: NILTON BAGLEY PA-C [Primary Care Provider] - Follow up as needed
[2019-09-06 08:34] LABS: ALBUMIN 4.4 g/dL (3.5-5.0); ALKALINE PHOSPHATASE 80 U/L (38-126); ANION GAP 8 (5-19); ASPARTATE AMINO TRANSFERASE 17 U/L (14-36); BILIRUBIN,DIRECT 0.1 mg/dL (0.0-0.4); BILIRUBIN,TOTAL 0.3 mg/dL (0.2-1.3); BLOOD UREA NITROGEN 15 mg/dL (7-20); CALCIUM 9.6 mg/dL (8.4-10.2); CARBON DIOXIDE 25 mmol/L (22-30); CHLORIDE 107 mmol/L (98-107); GLUCOSE 96 mg/dL (75-110); POTASSIUM 4.7 mmol/L (3.6-5.0); TOTAL PROTEIN 7.5 g/dL (6.3-8.2)
[2019-09-06 10:42] VITALS: BP 106/50
== END 2019-09-06 10:42 | disposition home or self-care (01) ==
LOC: ER 05:48
DX: K52.9 Noninfective gastroenteritis and colitis, unspecified (principal); R11.2 Nausea with vomiting, unspecified; R50.9 Fever, unspecified
CPT/HCPCS: 36415; 80053; 81001; 81025; 83690; 85025; 99283